=== PATIENT | male | born 1975 | race Caucasian/White ===

== ENCOUNTER 2017-05-14 11:11 | Emergency (ER) | payer OTHER, BC ==
[~2017-05-14] VITALS: Ht 180.3 cm; Wt 95.3 kg
[2017-05-14 11:32] VITALS: BP 140/89
--- NOTE | 2017-05-14 11:56 | RAD ---
Examination: 3 views of the right ankle History: History of swelling in the right ankle, twisting Comparison: None available Findings: The ankle mortise appears intact. There is no acute fracture identified. Mild prominent appearing soft tissue swelling lateral to lateral malleolus. Impression 1. No acute osseous findings. 2. Mild soft tissue swelling identified lateral to lateral malleolus probably soft tissue injury.
--- NOTE | 2017-05-14 12:16 | PHYS DOC ---
Past History Past Medical History: No Pertinent History Past Surgical History: No Surgical History Alcohol Use: Occasionally Drug Use: None Adult General Chief Complaint Chief Complaint: ANKLE PROBLEM HPI HPI Presents with history of having stepped in a hole and twisted his right ankle. He states that he something snap. He is continuing to have pain and tenderness over the right ankle especially the lateral aspect. Review of Systems Review of Systems Constitutional: Denies fever or chills [] Eyes: Denies change in visual acuity, redness, or eye pain [] HENT: Denies nasal congestion or sore throat [] Respiratory: Denies cough or shortness of breath [] Cardiovascular: No additional information not addressed in HPI [] GI: Denies abdominal pain, nausea, vomiting, bloody stools or diarrhea [] : Denies dysuria or hematuria [] Musculoskeletal: Denies back pain or joint pain tender lateral aspect of the of the right ankle Integument: Denies rash or skin lesions [] Neurologic: Denies headache, focal weakness or sensory changes [] Endocrine: Denies polyuria or polydipsia [] Allergies Allergies Allergies Coded Allergies Type Severity Reaction Last Updated Verified No Known Drug Allergies 05/14/17 No Physical Exam Physical Exam Constitutional: Well developed, well nourished, no acute distress, non-toxic appearance. [] HENT: Normocephalic, atraumatic, bilateral external ears normal, oropharynx moist, no oral exudates, nose normal. [] Eyes: PERRLA, EOMI, conjunctiva normal, no discharge. [] Neck: Normal range of motion, no tenderness, supple, no stridor. [] Cardiovascular:Heart rate regular rhythm, no murmur [] Lungs & Thorax: Bilateral breath sounds clear to auscultation [] Abdomen: Bowel sounds normal, soft, no tenderness, no masses, no pulsatile masses. [] Skin: Warm, dry, no erythema, no rash. [] Back: No tenderness, no CVA tenderness. [] Extremities: No tenderness, no cyanosis, no clubbing, ROM intact, no edema. [] Neurologic: Alert and oriented X 3, normal motor function, normal sensory function, no focal deficits noted. [] Psychologic: Affect normal, judgement normal, mood normal. [] Current Patient Data Vital Signs Vital Signs Date Time Temp Pulse Resp B/P (MAP) Pulse Ox O2 Delivery O2 Flow Rate FiO2 6/19/17 11:32 98.8 81 18 96 Room Air EKG EKG [] Radiology/Procedures Radiology/Procedures X-rays negative for fracture Impressions: Sprained right ankle Course & Med Decision Making Course & Med Decision Making Placed in air splint and Raul wrap Follow-up with his doctor in a week Hydrocodone/APAP for pain [] Dragon Disclaimer Dragon Disclaimer This chart was dictated in whole or in part using Voice Recognition software in a busy, high-work load, and often noisy Emergency Department environment. It may contain unintended and wholly unrecognized errors or omissions. Departure Departure: Referrals: PCP,NO (PCP) BRANNON SALEEM MD May 14, 2017 12:16
[2017-05-14] MEDS ORDERED: HYDR-2758 PO (12:20)
[2017-05-14] MEDS ORDERED: HYDROcodone/APAP 5/325MG 1 TAB TABLET ONE (12:37)
[2017-05-14] MEDS ORDERED: HYDROcodone/APAP 5/325MG 1 TAB TABLET PO ONE (12:45)
== END 2017-05-14 12:42 | disposition home or self-care (01) ==
LOC: ER 11:11
DX: S93.401A Sprain of unspecified ligament of right ankle, initial encounter (principal); X58.XXXA Exposure to other specified factors, initial encounter; Y93.89 Activity, other specified; Y99.8 Other external cause status; Y92.89 Other specified places as the place of occurrence of the external cause
CPT/HCPCS: 73610; 99284

== ENCOUNTER 2022-01-25 10:52 | Emergency (ER) | payer BC, OTHER ==
[~2022-01-25] VITALS: Ht 177.8 cm; Wt 100.0 kg
[~2022-01-25 10:52] MED LIST: HYDR-2155 PO
[2022-01-25 11:05] VITALS: BP 155/92
--- NOTE | 2022-01-25 11:07 | PHYS DOC ---
Past History Past Medical History: No Pertinent History Past Surgical History: No Surgical History Alcohol Use: Occasionally Drug Use: None Adult General Chief Complaint Chief Complaint: HAND PROBLEM HPI HPI Patient is a 46-year-old male presenting for right hand injury. Onset was 1 hour prior to arrival. Reports he was operating a hand-held electric drill when the drill bit got lodged and drill subsequently rotated around dragging his fingers and subsequently hitting hyperthenar eminence. Reported focal pain and soft tissue swelling. Has not taken anything for pain and immediately presented for evaluation given concern is he has prior fifth metacarpal fracture in the past that did not require surgical intervention. Reports ongoing focal pain without radiation, no motor or sensory or neurologic change Review of Systems Review of Systems Fourteen body systems of review of systems have been reviewed. See HPI for pertinent positives and negative responses, other hooper all other systems are negative, non-pertinent or non-contributory Allergies Allergies Allergies Coded Allergies Type Severity Reaction Last Updated Verified No Known Drug Allergies 05/14/17 No Physical Exam Physical Exam Constitutional: Well developed, well nourished, no acute distress, non-toxic appearance. HENT: Normocephalic, atraumatic, bilateral external ears normal, oropharynx moist, no oral exudates, nose normal. Eyes: PERRLA, EOMI, conjunctiva normal, no discharge. Neck: Normal range of motion, no tenderness, supple, no stridor. Cardiovascular: Heart rate regular per monitor Lungs & Thorax: No respiratory distress or accessory muscle use, bilateral chest rise Abdomen: Abdomen soft, non-tender, bowel sounds present in all quadrants, no guarding or rebound, nonacute abdomen. Skin: Warm, dry, no erythema, no rash. Back: No tenderness, no CVA tenderness. Extremities: Tenderness over right hyperthenar eminence overlying fourth metacarpal bone otherwise unremarkable formal examination of patient's right elbow, right forearm soft tissue compartments, no scaphoid tenderness, unremarkable hand and finger examinations. No cyanosis, no clubbing, ROM intact, 2+ radial pulse intact with cap refill less than 3 seconds to all distal digits Neurologic: Alert and oriented X 3, medial radial and ulnar nerves of right upper extremity intact, normal motor & sensory function, no focal deficits noted. Psychologic: Affect normal, judgement normal, mood normal. Current Patient Data Vital Signs Vital Signs Date Time Temp Pulse Resp B/P (MAP) Pulse Ox O2 Delivery O2 Flow Rate FiO2 01/25/22 11:05 97.9 69 16 155/92 (113) 97 Room Air Vital Signs Date Time Temp Pulse Resp B/P (MAP) Pulse Ox O2 Delivery O2 Flow Rate FiO2 01/25/22 11:05 97.9 69 16 155/92 (113) 97 Room Air EKG EKG [] Radiology/Procedures Radiology/Procedures 3 views the right hand without comparison for right hyper thenar eminence pain after a crush trauma. FINDINGS: There is nondisplaced spiral fracture of the fourth the carpal diaphysis, with a tiny avulsion fragment present proximally. No other fracture or acute osseous abnormalities identified. Joints and soft tissues are grossly unremarkable. IMPRESSION: 1. Nondisplaced spiral fracture of the fourth metacarpal. Electronically signed by: Dylon Le MD (01/25/2022 11:23 AM) [id number] Heart Score C/O Chest Pain: No Risk Factors: Risk Factors: DM, Current or recent (<one month) smoker, HTN, HLP, family h istory of CAD, obesity. Risk Scores: Risk Factors: DM, Current or recent (<one month) smoker, HTN, HLP, family history of CAD, obesity. 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 Reiterated need for strict immobilization to ensure adequate healing Ultimately, right ulnar gutter splint applied and reassessed by myself in satisfactory position with motor or sensory neuro function intact. Appropriate resources for primary care and orthopedic hand surgeons given with instructions to schedule outpatient follow-up within upcoming 1 to 2 weeks Pranay Disclaimer Dragon Disclaimer This electronic medical record was generated, in whole or in part, using a voice recognition dictation system. Departure Departure: Impression: Primary Impression: Closed fracture of 4th metacarpal Disposition: HOME / SELF CARE / HOMELESS Condition: STABLE Referrals: PCP,NO (PCP) Patient Instructions: Hand Fracture, Metacarpals Additional Instructions: You were seen for a fracture or broken bone of your right fourth metacarpal. You need to be seen in outpatient setting by an orthopedic surgeon for follow- up. You should not use the affected body part until you follow up with orthopedics. Keep the area clean, dry, and avoid getting it wet. Removal of a pplied splint can put you at increased risk for displacement of your current fracture or other downstream complications such as joint stiffness, malunion, nonunion and arthrosis. As such, close outpatient follow-up with primary care physician and orthopedic surgeon is paramount. I would specifically recommend follow-up with an orthopedic trained hand surgeon such as diabetes at [facility], [address] [place] [address] ([phone]). You should use ice, NSAIDs and/or Tylenol for pain, and elevation to help with swelling and pain. Return to the ED if you develop worsening pain, numbness, tingling, weakness, fever, redness, or any other new or concerning symptoms. WAQAS JACOBSON DO Jan 25, 2022 11:07
--- NOTE | 2022-01-25 11:25 | RAD ---
3 views the right hand without comparison for right hyper thenar eminence pain after a crush trauma. FINDINGS: There is nondisplaced spiral fracture of the fourth the carpal diaphysis, with a tiny avuls ion fragment present proximally. No other fracture or acute osseous abnormalities identified. Joints and soft tissues are grossly unremarkable. IMPRESSION: 1. Nondisplaced spiral fracture of the fourth metacarpal. Electronically signed by: Dylon Le MD (01/25/2022 11:23 AM) [id number]
[2022-01-26] MEDS ORDERED: HYDR-2765 PO (09:09)
== END 2022-01-25 12:22 | disposition home or self-care (01) ==
LOC: ER 10:52
DX: S62.394A Other fracture of fourth metacarpal bone, right hand, initial encounter for closed fracture (principal); W22.8XXA Striking against or struck by other objects, initial encounter; Y93.89 Activity, other specified; Y92.89 Other specified places as the place of occurrence of the external cause; Y99.8 Other external cause status
CPT/HCPCS: 29125; 73130; 99283